=== PATIENT | female | born 1955 | race Caucasian/White ===

== ENCOUNTER 2016-12-19 08:41 | Inpatient (IN) ==
[2016-12-19] MEDS ORDERED: DILAUDID IV ONE ×3 (09:27→13:44)
[2016-12-19] MEDS ORDERED: ZOFRAN IV ONE ×3 (09:27→13:44)
[2016-12-19] MEDS ORDERED: TORADOL IV ONE (09:27)
[2016-12-19] MEDS ORDERED: NS 1,000 ML IV ONE (09:27)
--- NOTE | 2016-12-19 09:29 | PROVIDER DOCUMENTATION ---
HPI-Musculoskeletal Pain/Inj - GENERAL Chief Complaint: Back Pain Stated Complaint: back pain after falling Time Seen by Provider: 12/19/16 09:11 Source: patient, family - HX OF PRESENT ILLNESS-MUSKULOSKELTAL Nature of Presenting Problem: 61 year old WF presents via ambulance with c/o mid/lower back pain. pt reports she was in her kitchen last night at 10:30, slipped and fell backwards directly onto her back. pt reports she has been unable to ambulate since that time. she reports she crawled to her bed, was able to get in bed, unable to sleep all night due to the pain. she reports she crawled to her living room this morning and called her daughter who arrived and notified EMS. pt reports a history of chronic neck pain which she takes norco 10mg BID, she also takes valium for anxiety and was recently started on xanaflex for muscle relaxation. pt denies loss of bowel/bladder, numbness/tingling in groin, inability to move extremities. pt appears in mild/moderate distress due to pain. Quality of Pain: reports: aching, dull Severity in ED: mild, moderate Onset/Duration: last night Timing: still present, constant, getting worse Modifying Factors: improves with: analgesics (pt reports taking 1/2 norco 10mg this AM without relief), movement (exacerbated by movement/palpation) Any recent injury?: Yes Locality of Occurance: Home Similar Symptoms Previously?: No Recently seen or treated by another doctor?: No - FALL INJURY Location of Pain/Injury: reports: back Pain Radiation: reports: no radiation Reason for Fall: reports: lost balance, slipped, tripped Symptoms prior to fall:: reports: none. denies: headache, seizure, other, fever /chills/sweaty, chest pain, rapid heart rate, cough, diarrhea, vomiting, GI bleed, dizzy/lightheaded Loss of Consciousness: no loss of consciousness Injury Associated Symptoms: reports: back/neck pain, unable to bear weight, trouble walking. denies: arm pain, chest pain, diaphoresis, dizziness, headaches, joint pain, muscle aches, nausea, shortness of breath, sensory/motor loss, snap/crack/pop sensation, pain with inspiration, vomiting, weakness - BACK & NECK PAIN/INJURY Back/Neck Pain Location: reports: T-spine, lumbar spine Back/Neck Pain Radiation: denies: headache, shoulders, arm(s), Buttocks, Upper Legs, Lower Legs, Feet, Other Context / Method of Injury: reports: fall Associated Symptoms: reports: denies symptoms. denies: loss of bladder control , loss of bowel control, fever, lower back pain, muscle spasms, numbness in legs /feet, numbness in upper ext, sensory/motor loss, tingling in legs/feet, tingling in upper ext, weakness in legs/feet, weakness in upper ext, other History of Chronic Neck or Back Pain?: Yes Review of Systems - Adult - REVIEW OF SYSTEMS - ADULT Constitutional: reports: no symptoms reported. denies: chills, fever, fatique Eyes: reports: no symptoms reported. denies: discharge, blurred vision, double vision Ears, Nose, Mouth & Throat: reports: no symptoms reported. denies: ear discharge, ear pain, nose pain, loose teeth, throat pain, throat swelling Cardiovascular: reports: no symptoms reported. denies: chest pain, palpitations , syncope Respiratory: reports: no symptoms reported. denies: chronic cough, cough, shortness of breath, wheezing Gastrointestinal: reports: no symptoms reported. denies: abdominal pain, diarrhea, nausea, vomiting Genitourinary: reports: no symptoms reported. denies: dysuria, hematuria, urgency Musculoskeletal: reports: see HPI, back pain, neck pain (chronic). denies: bone pain, frequent leg cramps, joint pain, joint swelling, muscle aches, muscle weakness Integumentary: reports: no symptoms reported. denies: hives, itching, skin sores/ulcer Neurological: reports: no symptoms reported. denies: ataxia, dizziness/vertigo , headache/migraines, loss of balance, numbness, paresthesia, seizure, slurred speech, syncope, tremors Psychiatric: reports: no symptoms reported Endocrine: reports: no symptoms reported Hematologic/Lymphatic: reports: no symptoms reported Allergic/Immunologic: reports: no symptoms reported. denies: frequent infections All Other Systems: Reviewed and Negative Past History - Adult - PAST MEDICAL HISTORY-ADULT Review of Records: reports: Old Records Reviewed, Nursing Assessment Review, Medications Reviewed, Social history reviewed & non-contributory. Major Childhood Illnesses: reports: denies history Cardiovascular: reports: HTN Respiratory: reports: denies history Gastrointestinal: reports: denies history Obstetrical/Gynecological: reports: denies history Genitourinary: reports: denies history Musculoskeletal: reports: chronic pain, intervertebral disc disease, neck/back injury, osteoporosis Neurological: reports: denies history Endocrine/Immune: reports: denies history Other Conditions: reports: denies history - IMMUNIZATION STATUS Childhood Immunizations: See Nurse Assessment Flu Vaccine: See Nurse Assessment - FAMILY HISTORY Family History: reviewed, not pertinent - SOCIAL HISTORY Smoking: cigarettes Provider spent 3-5 mins advising pt. on dangers of tobacco.: Discussed manners to quit use, and f/u contacts for add'l counseling. Substance Use: none/never Alcohol Use Frequency: never Physical Exam-Injury Related - Physical Exam-Injury Related Initial Vital Signs Reviewed: Yes General Appearance: appears well, alert, mild distress. negative: no apparent distress, moderate distress, lethargic, slow to respond, obtunded, combative Eyes: pink conjunctivae. negative: conjuctival exudate, photophobia, sclera injected, scleral icterus, subconjunctival hemorrhage Head, Ears, Nose, Mouth & Throat: normocephalic/atraumatic, moist mucous membranes Neck: non-tender, full range of motion, supple, normal inspection. negative: C- spine tenderness, decresed ROM, limited range of motion, pain on movement, tender lateral, tender midline, vertebral point tenderness Respiratory: chest non-tender, lungs clear, normal breath sounds, no pleuratic chest pain, no respiratory distress, no accessory muscle use. negative: respiratory distress, decreased breath sounds, accessory muscle use, crackles, rales, rhonchi, stridor, wheezing Cardiovascular: normal peripheral pulses, regular rate, rhythm Chest/Breast: no tenderness Peripheral Pulses: radial (R): 3+, radial (L): 3+, dorsalis-pedis (R): 3+, dorsalis-pedis (L): 3+ Abdominal Exam: normal bowel sounds, non tender, soft, no organomegaly. negative: distended, guarding, rigid, tenderness Back Exam: no CVA tenderness, decreased range of motion, vertebral tenderness (T -11/T-12/L1 focal tenderness, with palpation, pt extremely uncomfortable). negative: normal inspection, no vertebral tenderness, CVA tenderness, ecchymosis , kyphosis, lordosis, muscle spasm, scoliosis, swelling Extremity: normal range of motion, non-tender, normal gait, normal inspection, no pedal edema, no calf tenderness, normal capillary refill, pelvis stable. 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 negative: abnormal customer service receptionist II-XII, focal weakness, motor weakness, sensory deficit Psych/Mental Status: normal mood/affect, normal thought content, normal thought process, oriented x 3 - Glascow Coma Score Best Eye Response (Kenny): (4) open spontaneously Best Verbal Response (Kenny): (5) oriented Best Motor Response (Kenny): (6) obeys commands [place] Total: 15 Progress - PLAN OF CARE/RESULTS Progress/Plan/Lab Results: Vital Signs - 8 hr 12/19/16 09:05 Temperature 98.2 F Pulse Rate 84 Respiratory Rate 18 Blood Pressure 144/76 O2 Sat by Pulse Oximetry 97 Laboratory Results - last 24 hr 12/19/16 12/19/16 12/19/16 11:45 11:45 11:45 WBC 7.07 RBC 4.56 Hgb 15.6 Hct 43.9 MCV 96.3 MCH 34.2 H MCHC 35.5 RDW Std Deviation 11.9 Plt Count 287 MPV 9.4 Immature Gran % (Auto) 0.3 Neut % (Auto) 70.9 Lymph % (Auto) 19.5 L [place] % (Auto) 7.5 Eos % (Auto) 1.4 Baso % (Auto) 0.4 Immature Gran # (Auto) 0.02 Neut # (Auto) 5.01 Lymph # (Auto) 1.38 [place] # (Auto) 0.53 Eos # (Auto) 0.10 Baso # (Auto) 0.03 Sodium 129 L Potassium 4.4 Chloride 84 L Carbon Dioxide 28 Anion Gap 17 BUN 18 Creatinine 1.6 H Estimated GFR/1.73 m2 33 BUN/Creatinine Ratio 11 Glucose 87 Calculated Osmolality 260 Calcium 9.6 Total Bilirubin 0.71 AST 41 H ALT 37 H Alkaline Phosphatase 67 Total Protein 8.0 Albumin 4.8 Globulin 3.2 Albumin/Globulin Ratio 1.5 Urine Source CLEAN CATCH Urine Color YELLOW Urine Turbidity CLEAR Urine pH 6.0 Ur Specific [place] 1.005 Urine Protein NEGATIVE Ur Glucose (Stick) NEGATIVE Ur Ketones (Stick) NEGATIVE Urine Blood NEGATIVE Urine Nitrite NEGATIVE Urine Bilirubin NEGATIVE Urobilinogen Dipstick NORMAL Urine Leukocytes NEGATIVE Urine WBC (Auto) <10 Urine RBC (Auto) <10 U Epithel Cells (Auto) <10 Urine Bacteria (Auto) NEGATIVE Orders Category Date Time Status Ambulate Patient-Not Phys Thx ORDERED Care 12/19/16 12:57 Active CHEST-2 VIEWS [RAD] Stat Exams 12/19/16 13:43 Taken HEAD/C-SPINE W/O CONTRAST [CT] Stat Exams 12/19/16 09:28 Completed T-SPINE/L-SPINE W/O CONTRAST [CT] Stat Exams 12/19/16 09:24 Completed CBC WITH DIFF [HEME] Stat Lab 12/19/16 11:45 Completed CMP [COMPREHENSIVE METABOLIC PANEL] [CHEM] Stat Lab 12/19/16 11:45 Completed UA NIMS W/REFLEX CULT [URINALYSIS] Stat Lab 12/19/16 11:45 Completed 0.9% Sodium Chloride Inj [Ns] 1,000 ml Med 12/19/16 09:27 Discontinued IV 999 mls/hr Hydromorphone [Dilaudid] Med 12/19/16 09:27 Discontinued 1 mg IV NOW ONE Hydromorphone [Dilaudid] Med 12/19/16 11:59 Discontinued 1 mg IV NOW ONE Hydromorphone [Dilaudid] Med 12/19/16 13:44 Discontinued 1 mg IV NOW ONE Ketorolac [Toradol] Med 12/19/16 09:27 Discontinued 30 mg IV NOW ONE Ondansetron [Zofran] Med 12/19/16 09:27 Discontinued 4 mg IV NOW ONE Ondansetron [Zofran] Med 12/19/16 11:08 Discontinued 4 mg IV NOW ONE Ondansetron [Zofran] Med 12/19/16 13:44 Discontinued 4 mg IV NOW ONE EKG [EKG] Stat Ther 12/19/16 13:43 Ordered Laboratory Tests 12/19/16 12/19/16 12/19/16 11:45 11:45 11:45 WBC 7.07 RBC 4.56 Hgb 15.6 Hct 43.9 MCV 96.3 MCH 34.2 H MCHC 35.5 RDW Std Deviation 11.9 Plt Count 287 MPV 9.4 Immature Gran % (Auto) 0.3 Neut % (Auto) 70.9 Lymph % (Auto) 19.5 L [place] % (Auto) 7.5 Eos % (Auto) 1.4 Baso % (Auto) 0.4 Immature Gran # (Auto) 0.02 Neut # (Auto) 5.01 Lymph # (Auto) 1.38 [place] # (Auto) 0.53 Eos # (Auto) 0.10 Baso # (Auto) 0.03 Sodium 129 L Potassium 4.4 Chloride 84 L Carbon Dioxide 28 Anion Gap 17 BUN 18 Creatinine 1.6 H Estimated GFR/1.73 m2 33 BUN/Creatinine Ratio 11 Glucose 87 Calculated Osmolality 260 Calcium 9.6 Total Bilirubin 0.71 AST 41 H ALT 37 H Alkaline Phosphatase 67 Total Protein 8.0 Albumin 4.8 Globulin 3.2 Albumin/Globulin Ratio 1.5 Urine Source CLEAN CATCH Urine Color YELLOW Urine Turbidity CLEAR Urine pH 6.0 Ur Specific [place] 1.005 Urine Protein NEGATIVE Ur Glucose (Stick) NEGATIVE Ur Ketones (Stick) NEGATIVE Urine Blood NEGATIVE Urine Nitrite NEGATIVE Urine Bilirubin NEGATIVE Urobilinogen Dipstick NORMAL Urine Leukocytes NEGATIVE Urine WBC (Auto) <10 Urine RBC (Auto) <10 U Epithel Cells (Auto) <10 Urine Bacteria (Auto) NEGATIVE Orders Category Date Time Status Ambulate Patient-Not Phys Thx ORDERED Care 12/19/16 12:57 Active CHEST-2 VIEWS [RAD] Stat Exams 12/19/16 13:43 Taken HEAD/C-SPINE W/O CONTRAST [CT] Stat Exams 12/19/16 09:28 Completed T-SPINE/L-SPINE W/O CONTRAST [CT] Stat Exams 12/19/16 09:24 Completed CBC WITH DIFF [HEME] Stat Lab 12/19/16 11:45 Completed CMP [COMPREHENSIVE METABOLIC PANEL] [CHEM] Stat Lab 12/19/16 11:45 Completed UA NIMS W/REFLEX CULT [URINALYSIS] Stat Lab 12/19/16 11:45 Completed 0.9% Sodium Chloride Inj [Ns] 1,000 ml Med 12/19/16 09:27 Discontinued IV 999 mls/hr Hydromorphone [Dilaudid] Med 12/19/16 09:27 Discontinued 1 mg IV NOW ONE Hydromorphone [Dilaudid] Med 12/19/16 11:59 Discontinued 1 mg IV NOW ONE Hydromorphone [Dilaudid] Med 12/19/16 13:44 Discontinued 1 mg IV NOW ONE Ketorolac [Toradol] Med 12/19/16 09:27 Discontinued 30 mg IV NOW ONE Ondansetron [Zofran] Med 12/19/16 09:27 Discontinued 4 mg IV NOW ONE Ondansetron [Zofran] Med 12/19/16 11:08 Discontinued 4 mg IV NOW ONE Ondansetron [Zofran] Med 12/19/16 13:44 Discontinued 4 mg IV NOW ONE EKG [EKG] Stat Ther 12/19/16 13:43 Ordered Vital Signs - 24 hr 12/19/16 09:05 Temperature 98.2 F Pulse Rate 84 Respiratory Rate 18 Blood Pressure 144/76 O2 Sat by Pulse Oximetry 97 Result Diagrams: 12/19/16 11:45 12/19/16 11:45 - REASSESSMENT Reassessment #1 Time Reassessed: 11:09 Status: improving (pt reports pain has improved, requesting food/drink, will wait for CT results. Will remediacte for pain, pt appears more comfortable.) Reassessment #2 Time Reassessed: 13:41 Status: worsening (pt is unable to tolerate sitting at the bedside secondary to pain, she reports she thinks she is unable to even stand, notified Dr. Butt, will admit for pain control, orthopedic consult and possible rehab.) Reassessment #3 Time Reassessed: 14:53 Status: unchanged (notified family and pt of pending admission, agree, consent to admission.) - XRAY 1 XRAY Study: Thoracic Spine, Lumbar Spine Impression: Abnormal (acute mild compression fracture to the T-[address] De Jesus) - CONSULTS/PCP/HOSPITALIST Notification #1 *Consult/PCP/Hospitalist*: Dr. Avery marmolejo Time Discussed: 13:48 #2 Consult: Era Time Discussed: 13:51 Consult Disposition: Will see in ED (accepted admit, will not admit patientr until admission labs complete, will repage her at that time.), Admit #3 Consult: Era Time Discussed: 15:40 Consult Disposition: Admit, other (at bedside for admission/evaluation) Departure - Departure Time of Disposition Decision: 15:41 DIAGNOSIS: Thoracic compression fracture Qualifiers: Encounter type: initial encounter Fracture type: closed Qualified Code(s): S22.000A - Wedge compression fracture of unspecified thoracic vertebra, initial encounter for closed fracture Fall Qualifiers: Encounter type: initial encounter Qualified Code(s): W19.XXXA - Unspecified fall, initial encounter Disposition: ADMITTED INPATIENT 09 Certified Medical Emergency: Emergent Condition: Stable Referrals and Follow-Ups: None,PCP [Primary Care Provider] - - Critical Care Note This patient required my direct & personal management of CC.: No Attestation - Physician/ CASSANDRA Attestation Patient care was provided by Advanced Practice Provider:: Yes Advanced Practice Provider:: Ivy Gonsalez Advanced Practice Provider documentation review:: The Mid-level provider documentation, treatment plan and medical decision making was reviewed by the physician who agrees with all treatment and medical decision making by the MLP.
[2016-12-19] MEDS ORDERED: DILAUDID IM ONE (11:08)
--- NOTE | 2016-12-19 11:09 | Diag Imaging Result Doc PS360 ---
EXAM: HEAD/C-SPINE W/O CONTRAST HISTORY: fall, striking posterior head to tile TECHNIQUE: COMPARISON: None. FINDINGS: Head: No parenchymal hemorrhage. No epidural or subdural hematoma. No subarachnoid hemorrhage. No skull fracture. No mass identified on this noncontrasted exam. There is diffuse atrophy. Small air-fluid level right maxillary sinus. Cervical spine: There is reversal of the normal curvature. Moderate degenerative changes primarily at C5-6. No precervical soft tissue swelling. No fracture. IMPRESSION: 1.Head: No hemorrhage. No injury. There is atrophy and mild right maxillary sinusitis. 2.Cervical spine: No acute injury. Electronically signed by Donato De Jesus 12/19/2016 11:06 AM
--- NOTE | 2016-12-19 11:24 | Diag Imaging Result Doc PS360 ---
EXAM: T-SPINE/L-SPINE W/O CONTRAST HISTORY: fall, focal tenderness at T-11, T-12, TECHNIQUE: COMPARISON: None. FINDINGS: Thoracic spine: There is an acute mild compression fracture to the T12 vertebra. Loss of height of approximately 25%. No other fracture. No spinal stenosis. No subluxation. Lumbar spine: There are prominent degenerative changes in the lower lumbar spine. Approximately 7 mm of subluxation of L5 on S1. There are vacuum discs at L4-5 and L5-S1. No compression fracture to the lumbar spine. No other fracture. There are bilateral pars defects to the L5 vertebral. IMPRESSION: 1.Thoracic spine: Acute mild compression fracture to the T12 vertebra 2.Prominent degenerative changes in the lower lumbar spine, but no acute fracture to the lumbar spine. Electronically signed by Donato De Jesus 12/19/2016 11:22 AM
[2016-12-19 14:47] LABS: MANUAL DIFF NEEDED? NO; URINE CULTURE NEEDED? NO; URINE MICRO REVIEW NEEDED? NO; URINE SOURCE CLEAN CATCH
[2016-12-19 14:57] LABS: BILIRUBIN URINE NEGATIVE (NEGATIVE); BLOOD URINE NEGATIVE (NEGATIVE); COLOR YELLOW; GLUCOSE URINE NEGATIVE (NEGATIVE); LEUKOCYTES URINE NEGATIVE (NEGATIVE); NITRITE URINE NEGATIVE (NEGATIVE); PROTEIN URINE NEGATIVE (NEGATIVE); SP GRAVITY URINE 1.005; TURBIDITY URINE CLEAR (CLEAR); UROBILINOGEN URINE NORMAL (NORMAL)
[2016-12-19 14:58] LABS: BASO% 0.4 % (0.0-0.8); EOS% 1.4 % (0.0-10.0); HEMATOCRIT 43.9 % (37.0-47.0); HEMOGLOBIN 15.6 g/dL (12.0-16.0); IMM GRAN# 0.02 X1000 (0.0-0.04); IMM GRAN% 0.3 % (0.0-0.5); LYMPH# 1.38 X1000 (1.2-3.4); LYMPH% 19.5 % (20.5-51.1); MCH 34.2 PG (27-31); MCHC 35.5 g/dL (33-37); MCV 96.3 FL (81-99); MONO# 0.53 X1000 (0.11-0.59); MONO% 7.5 % (1.7-9.3); MPV 9.4 FL (7.4-10.4); NEUT% 70.9 % (42.2-75.2); PLT 287 X1000 (130-400); RBC 4.56 XMIL (4.2-5.4)
[2016-12-19 14:59] LABS: UR EPITHELIAL CELLS <10 /HPF (<10); URINE BACTERIA NEGATIVE /HPF; URINE RBC <10 /HPF (<10); URINE WBC <10 /HPF (<10)
[2016-12-19 15:12] LABS: ALBUMIN 4.8 g/dL (3.5-5.0); CALCIUM 9.6 mg/dL (8.8-10.2); POTASSIUM 4.4 mmol/L (3.5-5.1); TOTAL BILIRUBIN 0.71 mg/dL (0.20-1.00)
--- NOTE | 2016-12-19 16:36 | Diag Imaging Result Doc PS360 ---
EXAM: CHEST-2 VIEWS - 12/19/2016 HISTORY: admission TECHNIQUE: Chest two views COMPARISON: 01/19/2014 FINDINGS: Heart size is normal. The lungs appear clear. There is no pleural effusion or pneumothorax identified. There is mild compression deformity of the T12 vertebral body as seen on the earlier thoracic spine CT scan. IMPRESSION: No evidence of acute cardiopulmonary disease. Electronically signed by Juan Diego Bowens 12/19/2016 4:33 PM
[2016-12-19] MEDS ORDERED: NORCO-7.5 PO ONE (17:00)
[2016-12-19 17:09] LABS: UR CREAT RANDOM 47.8 mg/dL (11-20)
[2016-12-19] MEDS ORDERED: TUMS EXTRA STRENGTH PO ONE (17:09)
[2016-12-19] MEDS ORDERED: TYLENOL PO PRN (17:09)
[2016-12-19] MEDS: DILAUDID IV PRN ×2 (17:24→22:02)
[2016-12-19] MEDS: NS 1,000 ML IV SCH (17:24)
--- NOTE | 2016-12-19 17:26 | HISTORY AND PHYSICAL ---
PRIMARY CARE PROVIDER: Dr. Ngo with rheumatology. CHIEF COMPLAINT: Back pain after falling. HISTORY OF PRESENT ILLNESS: Ms Hayley Medina is a 61-year-old female with a history of hypertension, fibromyalgia, anxiety, depression, degenerative disk disease who apparently was at home last night had a fall around 10 p.m. and fell flat on her back. From that time she had mid to lower back pain was crawling and decided to seek medical attention since she was unable to stand. Upon further evaluation after admission she had imaging of CT scan of her thoracic, lumbar area which showed a acute mild compression fracture to the T12 vertebra, degenerative changes in the lower lumbar spine but no acute fracture. She was unable to go home and she was unable to stand and walk during her ER visit and her pain was difficult to control. Will admit for physical therapy consult, orthopedics and possibly rehab. When she was in the ER she was not even able to sit on the side of the bed without severe pain. Currently while resting in bed eating dinner she states that her pain is a 5/10 in the middle of her back and describes it stabbing. Moving makes it worse and lying flat and pain medication makes it feel better. PAST MEDICAL HISTORY: Hypertension, chronic pain syndrome with fibromyalgia, anxiety, depression, intravertebral disk disease, GERD, IBS and hepatic steatosis. SURGICAL HISTORY: Tubal ligation and hysterectomy. SOCIAL HISTORY: She smokes half to 1 pack per day since 19 years old, only has a 1 alcoholic beverage once per week. Denies illicit drug use. FAMILY HISTORY: She has a daughter who has osteoporosis. REVIEW OF SYSTEMS: Fourteen point review of systems were complete and all were negative except for those mentioned above HPI. She was dealing with complaints of nausea. ALLERGIES: Sulfamethoxazole and trimethoprim. HOME MEDICATIONS: Elavil 50 mg p.o. nightly, diazepam 5 mg p.o. daily, hydrochlorothiazide 25 mg p.o. daily, [place] 10 1 tab p.o. as needed, lisinopril 20 mg p.o. daily, metoprolol 50 mg p.o. daily, omeprazole 40 mg p.o. daily, Zanaflex 4 mg p.o. nightly. PHYSICAL EXAMINATION: VITAL SIGNS: Temperature is 98.2 degrees, heart rate 84, respiratory rate 18, blood pressure 144/76, O2 saturation 97% on room air, she is 5 feet 1 inch tall 140 pounds, BMI 26.5. GENERAL: Ms. Hayley Medina is a 61-year-old female. She is currently in no acute distress, was able answer questions appropriately. HEENT: Atraumatic, normocephalic. Pupils equal, round, reactive to light. Extraocular movements intact. NECK: No JVD or carotid bruits noted. CARDIOVASCULAR: S1, S2. Regular rate and rhythm. No rubs, gallops, murmurs. PULMONARY: Clear to auscultate. Bilateral breath sounds. No accessory muscle use or work of breathing noted. Currently on room air. GI: Soft, nontender, nondistended. Positive bowel sounds x4. EXTREMITIES: She moves all extremities equally. No numbness or tingling, no edema noted, +2 dorsalis radial pulses. NEURO: A and O x4. Moves all extremities equally SPINE: Tenderness in the T12 location. SKIN: Warm, dry, intact. LABORATORY DATA: White blood cells 7000, hemoglobin 15, hematocrit 43, platelet count 287,000. Sodium 129, potassium 4.4, BUN 18, creatinine is 1.1, glucose is 87, bilirubin 0.71, AST 41, ALT 37. Urinalysis negative. IMAGING: Chest x-ray. Full report pending. Lungs are clear. Heart size normal. No effusions. Mild compression deformity of the T12 vertebral body as seen on the thoracic spine CT. Head and cervical CT head, no hemorrhage, no injury. There is a mild right maxillary sinusitis. Cervical spine no acute findings. Thoracic lumbar spine CT. Acute mild compression fracture at the T12 vertebrae, prominent degenerative changes in the lower lumbar spine, no acute fracture of the lumbar spine. ASSESSMENT AND PLAN: 1. Acute mild compression fracture to T12 vertebrae. Will consult orthopedics. Will likely need a brace. 2. Chronic pain syndrome, fibromyalgia now with acute pain secondary to recent fall and fracture. Will do [place] p.r.n. She did receive several doses of Dilaudid in the ER and she received a dose of Toradol. Will continue with p.r.n. Dilaudid q.4 hours. 3. Hypertension. Once home medications are verified will continue antihypertensives. 4. Anxiety, depression. Continue home medications once verified. 5. Gastroesophageal reflux disease. Continue proton pump inhibitor. 6. Tobacco abuse cessation discussed. I have seen and examined the patient and I agree with the above evaluation. Acute mild compression fracture to T12 vertebrae with intractable pain will need ortho eval. PT and possible rehab arrangement. Dictated by JERED Abel for Ronnie Pham MD cc: JERED Abel MD [facility]
[2016-12-19] MEDS: PRILOSEC PO SCH (20:44)
[2016-12-19] MEDS: NORCO-7.5 PO PRN (20:44)
[2016-12-19] MEDS: NICODERM PATCH TD SCH (22:02)
[2016-12-20] MEDS: NORCO-7.5 PO PRN ×2 (03:25→09:44)
[2016-12-20 05:35] LABS: MANUAL DIFF NEEDED? NO
[2016-12-20 05:48] LABS: INR 0.96; PROTIME 10.1 Seconds (9.2-11.7); PTT 27.5 Seconds (22.0-36.0)
[2016-12-20] MEDS: DILAUDID IV PRN ×3 (05:56→15:15)
[2016-12-20] MEDS: NS 1,000 ML IV SCH ×2 (05:56→18:43)
[2016-12-20 06:00] LABS: BASO% 0.2 % (0.0-0.8); EOS# 0.15 X1000 (0.0-0.7); EOS% 2.7 % (0.0-10.0); HEMATOCRIT 36.8 % (37.0-47.0); HEMOGLOBIN 13.1 g/dL (12.0-16.0); LYMPH# 1.21 X1000 (1.2-3.4); LYMPH% 21.8 % (20.5-51.1); MCH 34.4 PG (27-31); MCHC 35.6 g/dL (33-37); MCV 96.6 FL (81-99); MONO# 0.36 X1000 (0.11-0.59); MONO% 6.5 % (1.7-9.3); MPV 8.8 FL (7.4-10.4); NEUT% 68.8 % (42.2-75.2); PLT 207 X1000 (130-400); RBC 3.81 XMIL (4.2-5.4)
[2016-12-20 06:07] LABS: ALBUMIN 3.6 g/dL (3.5-5.0); CALCIUM 8.8 mg/dL (8.8-10.2); MAGNESIUM 1.5 mg/dL (1.5-2.7); POTASSIUM 4.3 mmol/L (3.5-5.1); TOTAL BILIRUBIN 0.54 mg/dL (0.20-1.00); TOTAL PROTEIN 6.1 g/dL (6.3-8.3)
[2016-12-20] MEDS ORDERED: VALIUM PO PRN (09:29)
[2016-12-20] MEDS ORDERED: PROZAC PO SCH (09:31)
[2016-12-20] MEDS: LOVENOX SUBQ SCH (09:43)
[2016-12-20] MEDS: PRILOSEC PO SCH ×2 (09:43→20:06)
[2016-12-20] MEDS: MYLICON PO PRN ×2 (09:57→18:47)
[2016-12-20] MEDS: TOPROL XL PO SCH (09:57)
--- NOTE | 2016-12-20 12:28 | PROGRESS NOTE ---
DATE: 12/20/2016 SUBJECTIVE: Ms. Medina is a 61-year-old female. She is in no acute distress. She states that her pain has improved and her nausea has improved. She has attempted some movements in the bed, but has not quite sat up on the side of bed yet. Still waiting for Dr. Krause's recommendations and we are following up with future rehab needs. OBJECTIVE: Vital Signs: Temperature 98.5 degrees, heart rate 89, respiratory rate 16, blood pressure 143/89, O2 saturation 100% on room air. General: Ms. Medina is a 61-year-old, ill- appearing female. She is in no acute distress. Is able answer all questions appropriately. Cardiovascular: S1 and S2. Regular rate and rhythm. No rubs, gallops, or murmurs. Pulmonary: Clear to auscultation. Bilateral breath sounds. No accessory muscle use or work of breathing noted. Gastrointestinal: Soft, nontender, round. Positive bowel sounds x4. Extremities: Dorsalis and radial pulses 2+. No edema noted. Neurologic: A and O x4. Moves all extremities equally. No decreased sensation in extremities. LABORATORY DATA: White blood cells 5000, hemoglobin 13, hematocrit 36, platelet count 207,000. Sodium 128, potassium 4.3, BUN 14, creatinine 1.4, glucose 109, magnesium 1.5. Urine osmolality 190, urine creatinine 47.8, and urine sodium is 37. ASSESSMENT AND PLAN: 1. Acute mild compression fracture of the T12 vertebra, awaiting Orthopedic Surgery recommendations for plan for rehabilitation. Patient still has difficulties with movement as far as pain is concerned. She is unable to sit on the side of bed yet. 2. Chronic pain syndrome with fibromyalgia, now with acute pain secondary to fracture. Continue [place] and Dilaudid. 3. Hypertension. Continue home medications. 4. Anxiety and depression. Continue home medications. 5. Acute kidney injury with possible chronic kidney disease. Urine laboratories. Her FENa level is 0.96%, but looking at her medication history, she is on hydrochlorothiazide, so this could be an incorrect number. We will continue with IV fluid hydration. 6. Hyponatremia. Continue normal saline IV fluids. 7. Deep venous thrombosis prophylaxis. Proton pump inhibitor. 8. Constipation. Start a stool softener, Colace twice daily. 9. Tobacco abuse. Cessation discussed. Continue with nicotine patch. Dictated by JERED Abel for Ronnie Pham MD cc: JERED Abel MD
--- NOTE | 2016-12-20 13:27 | CONSULTATION ---
DATE OF CONSULTATION: 12/20/2016 CHIEF COMPLAINT: Mid back pain. HISTORY OF PRESENT ILLNESS: Hayley Medina is a 61-year-old female who fell earlier in the week and complains of mid back pain. She was diagnosed with a T12 compression fracture and I was asked to see in orthopedic consultation. PHYSICAL EXAMINATION: Reveals a well-developed, well-nourished female. She is alert, oriented, and cooperative with exam. She is tender over her mid back region, but there is no step-off and her legs are neurovascularly intact. IMAGING: Her CT scan shows a T12 compression fracture. IMPRESSION: Acute T12 compression fracture. PLAN: I think she should work with physical therapy with just pain medicine pain control as needed. We will switch her over to Percocet and order physical therapy today. She can likely go to rehab. She can certainly see the neurosurgeons for an MRI and consideration of a kyphoplasty, although this appears mild and I doubt that they would want to do that, given her history of previous back problems. I recommend that she go to rehab and continue her physical therapy. She can return to see me or the spine or neuro group in 1 month. cc: Artie Krause MD
[2016-12-20] MEDS: NICODERM PATCH TD SCH (14:10)
[2016-12-20] MEDS: PERCOCET-10 PO PRN ×3 (14:10→22:47)
[2016-12-20] MEDS ORDERED: APRESOLINE IV PRN (14:12)
--- NOTE | 2016-12-20 15:57 | PROGRESS NOTE ---
DATE: 12/20/2016 SUBJECTIVE: Today Ms. Medina refers to be doing a little better. Continues to have some pain at the back. She was somehow extremely tearful. According to her, she thinks her daughter is manipulating her, and she has the feeling that the daughter feels like her boss. She also wants to go out and smoke, and I think the daughter does not want that and it is creating part of the problem. OBJECTIVE: Vital signs: Blood pressure is 143/89, pulse of 89, respirations 16, temperature is 88.5. General exam: Ms. Medina is a 61-year-old, female. She is in bed, does not seem to be in any distress. Abdomen: Soft and nontender. Extremities: No pedal edema. 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 There is no focal neurological deficit. Please refer to the other part of the progress note, the one that was done early on today by Ms. Suzanne Caceres. ASSESSMENT: 1. Mild compression fracture of the T12. The patient has been evaluated by orthopedics. For now, she will continue with the braces. Will continue with adequate pain management, and the patient would be needing to go to a rehabilitation upon discharge. 2. Chronic pain syndrome with fibromyalgia. 3. Hypertension. 4. Anxiety and depression. 5. Hyponatremia. cc: Ronnie Pham MD
[2016-12-20] MEDS: ZOFRAN IV PRN (18:30)
[2016-12-20] MEDS: PROZAC PO SCH (20:06)
[2016-12-20] MEDS: ELAVIL PO SCH (20:07)
[2016-12-20] MEDS: PERICOLACE PO SCH (20:07)
[2016-12-20] MEDS: ZANAFLEX PO SCH ×2 (20:07→20:11)
[2016-12-21] MEDS: NS 1,000 ML IV SCH ×4 (02:37→23:49)
[2016-12-21] MEDS: PERCOCET-10 PO PRN ×3 (04:30→20:57)
[2016-12-21 05:52] LABS: MANUAL DIFF NEEDED? NO
[2016-12-21 05:56] LABS: BASO% 0.2 % (0.0-0.8); EOS# 0.11 X1000 (0.0-0.7); EOS% 1.8 % (0.0-10.0); HEMATOCRIT 38.4 % (37.0-47.0); HEMOGLOBIN 13.4 g/dL (12.0-16.0); LYMPH# 1.32 X1000 (1.2-3.4); LYMPH% 21.3 % (20.5-51.1); MCH 34.1 PG (27-31); MCHC 34.9 g/dL (33-37); MCV 97.7 FL (81-99); MONO# 0.34 X1000 (0.11-0.59); MONO% 5.5 % (1.7-9.3); MPV 8.6 FL (7.4-10.4); NEUT% 71.2 % (42.2-75.2); PLT 209 X1000 (130-400); RBC 3.93 XMIL (4.2-5.4)
[2016-12-21 06:39] LABS: ALBUMIN 3.8 g/dL (3.5-5.0); POTASSIUM 4.2 mmol/L (3.5-5.1); TOTAL BILIRUBIN 0.63 mg/dL (0.20-1.00); TOTAL PROTEIN 6.5 g/dL (6.3-8.3)
[2016-12-21] MEDS: LOVENOX SUBQ SCH (07:58)
[2016-12-21] MEDS: PERICOLACE PO SCH ×2 (07:59→23:49)
[2016-12-21] MEDS: TOPROL XL PO SCH (07:59)
[2016-12-21] MEDS: PRILOSEC PO SCH ×2 (08:00→20:36)
[2016-12-21] MEDS ORDERED: TOPROL XL PO SCH (09:00)
[2016-12-21] MEDS ORDERED: PROZAC PO SCH (09:00)
--- NOTE | 2016-12-21 09:21 | PROGRESS NOTE ---
DATE: 12/21/2016 SUBJECTIVE: Ms. Medina is a 61-year-old female who has a T12 compression fracture after falling earlier this week. OBJECTIVE: General: She is a well developed, well-nourished female. She is alert and oriented, and cooperative with the examination. Vital Signs: Stable. She is afebrile. Back: She is tender over her mid back region. Extremities: Her legs are neurovascularly intact. She is currently wearing a brace. ASSESSMENT: Acute T12 compression fracture. PLAN: We will continue working with her with physical therapy and with pain control as needed. She can likely go to rehab when she is medically stable. She can return to see Dr. Krause or the spinal neurological group in 1 month. Dictated by PAULY Rayo for Artie Krause MD cc: PAULY Rayo MD
[2016-12-21] MEDS: VITAMIN D PO SCH (11:59)
--- NOTE | 2016-12-21 14:42 | PROGRESS NOTE ---
DATE: 12/21/2016 Today Ms. Medina refers to be doing a whole lot better. Continues to have some pain to the back. OBJECTIVE: Vital signs: Blood pressure is 152/93, pulse of 91, respirations 14, temperature 97.9 degrees. General: Ms. Medina is a 61-year-old female. She is in bed, no seemingly distress. HEENT: Mucosa is pink and moist. Anicteric. Acyanotic. Neck: Supple. Chest: Good air entry bilaterally. No crepitations. No rhonchi. Cardiovascular: Regular rate and rhythm. Abdomen: Soft, distended, but nontender. Extremities: No pedal edema. 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 Musculoskeletal: There is there is some tenderness to palpation of the thoracic spine. ASSESSMENT: 1. Mild compression fracture of T12 after fall at home. The patient will continue using the braces. Has already been evaluated by Orthopedic Surgery and there is a plan for her to be discharged to a rehab tomorrow. 2. Chronic pain syndrome with fibromyalgia. Will continue with her home medications. 3. Hypertension. 4. Anxiety and depression. 5. Hyponatremia. This is improving. 6. Dehydration. Will continue with the gentle hydration. 7. Vitamin D deficiency. We will replace that. cc: Ronnie Pham MD
[2016-12-21] MEDS: MYLICON PO PRN ×2 (15:58→20:36)
[2016-12-21] MEDS: PROZAC PO SCH (20:36)
[2016-12-21] MEDS: NICODERM PATCH TD SCH ×2 (20:37)
[2016-12-21] MEDS: ZANAFLEX PO SCH (20:37)
[2016-12-21] MEDS: ZOFRAN IV PRN (20:37)
[2016-12-21] MEDS: ELAVIL PO SCH (20:37)
[2016-12-22] MEDS: DILAUDID IV PRN
[2016-12-22] MEDS: NS 1,000 ML IV SCH ×2 (05:30→12:00)
[2016-12-22] MEDS: PERCOCET-10 PO PRN ×3 (05:37→15:34)
[2016-12-22] MEDS: MYLICON PO PRN ×2 (06:17→11:42)
[2016-12-22 06:28] LABS: MANUAL DIFF NEEDED? NO
[2016-12-22 06:37] LABS: BASO% 0.2 % (0.0-0.8); EOS# 0.09 X1000 (0.0-0.7); EOS% 1.7 % (0.0-10.0); HEMATOCRIT 38.2 % (37.0-47.0); HEMOGLOBIN 13.1 g/dL (12.0-16.0); LYMPH# 1.31 X1000 (1.2-3.4); LYMPH% 24.5 % (20.5-51.1); MCH 33.7 PG (27-31); MCHC 34.3 g/dL (33-37); MCV 98.2 FL (81-99); MONO# 0.41 X1000 (0.11-0.59); MONO% 7.7 % (1.7-9.3); MPV 9.3 FL (7.4-10.4); NEUT% 65.9 % (42.2-75.2); PLT 222 X1000 (130-400); RBC 3.89 XMIL (4.2-5.4)
[2016-12-22 06:55] LABS: ALBUMIN 3.4 g/dL (3.5-5.0); POTASSIUM 4.7 mmol/L (3.5-5.1); TOTAL BILIRUBIN 0.56 mg/dL (0.20-1.00); TOTAL PROTEIN 6.5 g/dL (6.3-8.3)
[2016-12-22] MEDS: LOVENOX SUBQ SCH (08:26)
[2016-12-22] MEDS: PRILOSEC PO SCH (08:27)
[2016-12-22] MEDS: PERICOLACE PO SCH (08:27)
[2016-12-22] MEDS: TOPROL XL PO SCH (08:27)
[2016-12-22] MEDS: VITAMIN D PO SCH (08:27)
--- NOTE | 2016-12-22 12:22 | DISCHARGE SUMMARY ---
ADMISSION DATE: 12/19/2016 DISCHARGE DATE: 12/22/2016 PERTINENT PROCEDURES: 1. Thoracic and lumbar spine. CT showed acute mild compression at T12 vertebra, prominent degenerative changes in lower lumbar spine. No acute fracture. 2. Head and cervical spine CT showed no hemorrhage, no injury. 3. Cervical spine with no acute injury. DISCHARGE DIAGNOSES: 1. Noncompression fracture of T12 after fall at home. The patient will continue using braces. She was evaluated by Orthopedic surgery. The patient will be discharged to [facility], stable. 2. Chronic pain syndrome with fibromyalgia. Continue home medications. 3. Hypertension, stable. 4. Anxiety and depression. Continue medications. 5. Hyponatremia improved. 6. Dehydration, improved. 7. Vitamin D deficiency. Continue with supplementation. CONSULTATIONS: Dr. Artie Krause with Orthopedics. HOSPITAL COURSE: Briefly, Ms. Medina is a 61-year-old female who carries a past medical history of hypertension, fibromyalgia, anxiety, depression, degenerative disk disease. She had fallen at her home around 10 p.m. and fell flat on her back. From that time she had mid lower back pain, was crawling and decided to seek medical attention. She states she was unable to stand. Upon further evaluation in the ED her CT imaging showed a mild compression fracture of the T12 vertebra with degenerative changes in the lower lumbar spine but no acute fracture. She was unable to go home because she was unable to walk during her ED visit, and her pain was difficult to control. The patient was admitted for physical therapy consult as well as orthopedics and rehab placement. She was evaluated by Dr. Krause who agreed with physical therapy and pain control, as well as using a back brace. Okay to go to rehab when medically stable, and follow up with him in 1 month. Ms. Medina's dehydration and hyponatremia improved with fluids. She is tolerating a diet. She is working with physical therapy. She will be discharged to rehab today. VITAL SIGNS: Temperature is 98.7 degrees, heart rate 92, respirations 16, blood pressure 119/70, O2 is 99% on room air. DISCHARGE DIET: Regular. DISCHARGE MEDICATIONS: 1. Elavil 25 mg p.o. at bedtime. 2. Vitamin D 3000 units p.o. daily. 3. Diazepam 5 mg p.o. p.r.n. 4. Prozac 20 mg p.o. daily. 5. Lisinopril 20 mg p.o. daily. 6. Metoprolol 50 mg p.o. daily. 7. Prilosec 40 mg p.o. daily. 8. Percocet 10 1-2 each p.o. q. 4 hours p.r.n. 9. Samantha-Colace 2 each p.o. b.i.d. 10. Simethicone 125 mg p.o. p.r.n. FOLLOW-UP: The patient is being discharged to [facility]. She will follow up with Dr. Krause in 1 month. The patient can return to the ED for any worsening of symptoms. DISCHARGE TIME: 30 minutes. Dictated by JERED Hilliard for Ronnie Pham MD cc: Ronnie Pham MD
[2016-12-22 15:38] VITALS: BP 132/75
== END 2016-12-22 17:13 ==
LOC: ED 08:41 → 4N 16:52
PROVIDERS: ATTEND Internal Medicine